=== PATIENT | male | born 1995 | race Caucasian/White ===

== ENCOUNTER 2017-06-11 07:59 | Emergency (ER) | payer OTHER ==
[~2017-06-11] VITALS: Ht 167.6 cm; Wt 97.3 kg
[2017-06-11] MEDS ORDERED: NAPROXEN 250 MG TAB PO ONE (08:45)
--- NOTE | 2017-06-11 09:14 | REP ---
Left ankle series: Four views. History: Pain. Findings: Four views of the left ankle demonstrate an intact ankle mortise. No fracture or subluxation is seen. An accessory navicular ossicle is seen on the lateral radiograph. Impression: No fracture noted. Signed by Alexei Carlos MD 06/11/2017 09:55 A
--- NOTE | 2017-06-11 09:14 | REP ---
Left foot series: Four views. History: Pain. Findings: Four views of the left foot show overall normal mineralization. No fracture or subluxation is seen. Impression: No fracture noted. Signed by Alexei Carlos MD 06/11/2017 09:55 A
[2017-06-11] MEDS ORDERED: MOBI4TAB PO (09:15)
[2017-06-11 09:25] VITALS: BP 142/80
== END 2017-06-11 09:27 | disposition home or self-care (01) ==
LOC: M ED 07:59
DX: S90.02XA Contusion of left ankle, initial encounter (principal); W22.8XXA Striking against or struck by other objects, initial encounter; Y92.129 Unspecified place in nursing home as the place of occurrence of the external cause; Y93.E2 Activity, laundry; Y99.0 Civilian activity done for income or pay; Z79.899 Other long term (current) drug therapy

== ENCOUNTER 2017-09-21 15:04 | Emergency (ER) | payer OTHER, SELFPAY ==
[~2017-09-21] VITALS: Ht 167.6 cm; Wt 106.4 kg
[~2017-09-21 15:04] MED LIST: MOBI4TAB PO
[2017-09-21] MEDS ORDERED: BACT800T5 PO (16:24)
[2017-09-21] MEDS ORDERED: BACTRIM 160MG/800MG DS TAB PO ONE (16:30)
[2017-09-21 16:34] VITALS: BP 140/87
== END 2017-09-21 16:37 | disposition home or self-care (01) ==
LOC: M ED 15:04
DX: N39.0 Urinary tract infection, site not specified (principal)

== ENCOUNTER 2018-04-06 23:07 | Emergency (ER) | payer SELFPAY ==
[2018-04-07 01:44] LABS: APPEARANCE, URINE CLEAR (CLEAR); BACTERIA, URINE AUTO NEGATIVE (NEGATIVE); BILIRUBIN, URINE AUTO NEGATIVE (NEGATIVE); BLOOD, URINE BLOOD NEGATIVE (NEGATIVE); COLOR, URINE YELLOW (YELLOW); GLUCOSE, URINE (UA) AUTO NEGATIVE (NEGATIVE); KETONE, URINE AUTO NEGATIVE (NEGATIVE); LEUKOCYTE ESTERASE, URINE AUTO NEGATIVE (NEGATIVE); MUCUS, URINE SMALL (NEGATIVE); NITRITE, URINE AUTO NEGATIVE (NEGATIVE); PROTEIN, URINE AUTO NEGATIVE (NEGATIVE); RBC, URINE AUTO 3 /HPF (0-3); SQUAMOUS EPITHELIAL CELL UR AU 0 /HPF (0-6); UROBILINOGEN, URINE AUTO 0.2 mg/dL (0.0-2.0); WBC, URINE AUTO 1 /HPF (0-3)
== END 2018-04-07 02:20 | disposition home or self-care (01) ==
LOC: M ED 23:07
DX: N50.3 Cyst of epididymis (principal)
CPT/HCPCS: 76870

== ENCOUNTER 2019-03-31 00:22 | Emergency (ER) | payer SELFPAY ==
[~2019-03-31] VITALS: Ht 167.6 cm; Wt 87.3 kg
[~2019-03-31 00:22] MED LIST changes: +BACT800T5 PO
[2019-03-31 02:19] LABS: CHLAMYDIA DNA AMPLIFICATION NEGATIVE (NEGATIVE); GC DNA AMPLIFICATION NEGATIVE (NEGATIVE)
[2019-03-31] MEDS ORDERED: cefTRIAXone SOD 1 GM VIAL (J0696) IM ONE (04:00)
[2019-03-31] MEDS ORDERED: LIDOCAINE 1% SDV 5 ML VIAL DILUENT ONE (04:00)
[2019-03-31] MEDS ORDERED: DOXY100C37 PO (04:04)
[2019-03-31 05:13] VITALS: BP 125/84
== END 2019-03-31 05:18 | disposition home or self-care (01) ==
LOC: M ED 00:22
DX: N34.1 Nonspecific urethritis (principal)
CPT/HCPCS: 81001; 87086; 87491; 87591; 96372; 99283; J0696

== ENCOUNTER → 2019-08-21 | Outpatient (CLI) | payer OTHER ==
[~2019-08-21] MED LIST changes: +DOXY100C37 PO
--- NOTE | 2019-08-21 13:08 | REP ---
Duplex extremity venous ultrasound: Right lower extremity. History: Right leg pain. Rule out DVT. Findings: The deep veins are anechoic and fully compressible from the groin to the popliteal fossa in the right lower extremity. Color flow imaging is homogeneous. Spectral Doppler interrogation demonstrates intact respiratory variation in flow and normal manual augmentation of flow. There is no evidence of deep vein thrombosis. Impression: Negative right lower extremity duplex venous ultrasound. No evidence of deep vein thrombosis. Electronically Signed by Alexei Carlos MD 08/21/2019 01:00 P
== END ==
LOC: M RAD 12:26
DX: M79.661 Pain in right lower leg (principal)

== ENCOUNTER → 2019-11-26 | Outpatient (REF) | payer SELFPAY ==
[2019-11-26 15:23] LABS: INFLUENZA A AMPLIFICATION NEGATIVE (NEGATIVE); INFLUENZA B AMPLIFICATION POSITIVE (NEGATIVE)
== END ==
LOC: M LAB REF 14:27
PROVIDERS: ATTEND Physician Assistant
DX: J11.1 Influenza due to unidentified influenza virus with other respiratory manifestations (principal)

== ENCOUNTER → 2019-12-10 | Outpatient (REF) | payer SELFPAY ==
[~2019-12-10] MED LIST changes: +MAGICMW SSP; +TESS100C PO
== END ==
LOC: M LAB REF 12:32
PROVIDERS: ATTEND Physician Assistant
DX: J02.9 Acute pharyngitis, unspecified (principal)

== ENCOUNTER 2019-12-13 03:37 | Emergency (ER) | payer SELFPAY ==
[~2019-12-13] VITALS: Ht 167.6 cm; Wt 107.6 kg
[~2019-12-13 03:37] MED LIST changes: -MAGICMW SSP; -TESS100C PO
[2019-12-13] MEDS ORDERED: MAGIC MOUTHWASH SUSPENSION BTL SS STA (06:09)
[2019-12-13] MEDS ORDERED: IBUPROFEN 800 MG TAB PO ONE (06:15)
[2019-12-13 07:14] LABS: MONO REFLEX EBV COMP NEGATIVE (NEGATIVE)
[2019-12-13] MEDS ORDERED: TESS100C PO (07:25)
[2019-12-13] MEDS ORDERED: MAGICMW SSP (07:25)
[2019-12-13 07:29] VITALS: BP 133/73
[2019-12-15 14:16] LABS: EBV AB TO NUCLEAR ANTIGEN 83.4 U/mL (0.0-17.9); EBV VIRAL CAPSID AG IgG 33.9 U/mL (0.0-17.9); EBV VIRAL CAPSID AG IgM <36.0 U/mL (0.0-35.9)
== END 2019-12-13 07:36 | disposition home or self-care (01) ==
LOC: M ED 03:37
DX: J02.9 Acute pharyngitis, unspecified (principal); Z87.09 Personal history of other diseases of the respiratory system

== ENCOUNTER 2020-04-22 09:02 | Emergency (ER) | payer OTHER, SELFPAY ==
[~2020-04-22] VITALS: Ht 167.6 cm; Wt 111.2 kg
[~2020-04-22 09:02] MED LIST changes: +MAGICMW SSP; +TESS100C PO
[2020-04-22] MEDS ORDERED: KETOROLAC TROMETHAMINE 10 MG TAB PO ONE (10:15)
--- NOTE | 2020-04-22 10:41 | REP ---
Clinical: Trauma . Technique: Internal rotation, external rotation, and Y view right shoulder . Findings: No acute fracture or dislocation. The acromioclavicular and glenohumeral joints are intact. No periarticular calcifications or degenerative changes are appreciated. Sub acromial space is normal. Surrounding soft tissues are unremarkable. Impression: Normal right shoulder radiographs. Electronically Signed by Gil Vásquez MD 04/22/2020 10:33 A
[2020-04-22] MEDS ORDERED: IBUP80TA PO (10:51)
[2020-04-22 10:55] VITALS: BP 134/82
== END 2020-04-22 10:58 | disposition home or self-care (01) ==
LOC: M ED 09:02
DX: S40.011A Contusion of right shoulder, initial encounter (principal); W22.8XXA Striking against or struck by other objects, initial encounter; Y92.89 Other specified places as the place of occurrence of the external cause; Y93.9 Activity, unspecified; Y99.0 Civilian activity done for income or pay

== ENCOUNTER 2020-04-27 15:31 | Emergency (ER) | payer OTHER, SELFPAY ==
[~2020-04-27] VITALS: Ht 167.6 cm; Wt 110.8 kg
[~2020-04-27 15:31] MED LIST changes: +IBUP80TA PO
--- NOTE | 2020-04-27 17:52 | REPVR ---
PROCEDURE INFORMATION: Exam: US Scrotum Exam date and time: 04/27/2020 5:32 PM Age: 25 years old Clinical indication: Scrotum pain; Patient HX: Rash/pain scrotum; Additional info: Redness, tender scrotum TECHNIQUE: Imaging protocol: Real-time ultrasound of the scrotum and contents with color Doppler and image documentation. COMPARISON: Scrotal, US 04/07/2018 1:00 AM FINDINGS: Right testicle measures 4.7 x 2.8 x 3.2 cm in size. Right testicle appears homogeneous with no focal mass. Normal Doppler flow is present within the right testicle. Left testicle measures 4.9 x 2.3 x 3.5 cm in size. Left testicle appears homogeneous with no focal mass. Normal Doppler flow is present within the left testicle. Right and left epididymis are symmetric and have normal Doppler flow. Incidental right epididymal head cyst 6 mm. Physiologic fluid volume within the scrotal sac. Minor left varicocele No bowel-containing hernia sac within the scrotum. IMPRESSION: No evidence of scrotal infection or abscess. Incidental 6 mm right epididymal head cyst and minor left varicocele. Electronically signed by: Arash Mandel On 04/27/2020 17:51:21 PM
[2020-04-27 18:36] VITALS: BP 131/82
[2020-04-27 18:46] LABS: CHLAMYDIA DNA AMPLIFICATION NEGATIVE (NEGATIVE); GC DNA AMPLIFICATION NEGATIVE (NEGATIVE)
--- NOTE | 2020-04-28 15:09 | ED PDOC ---
Post-Departure Follow-Up dr dhillon faxed formal report of scrotal us for fu Genesis Cabral MD Apr 28, 2020 15:09
[2020-05-01 19:06] LABS: HSV-1 DNA Negative (Negative); HSV-2 DNA Negative (Negative)
== END 2020-04-27 18:37 | disposition home or self-care (01) ==
LOC: M ED 15:31
DX: L29.8 Other pruritus (principal); N49.2 Inflammatory disorders of scrotum; N50.3 Cyst of epididymis

== ENCOUNTER 2022-10-28 03:45 | Emergency (ER) | payer SELFPAY ==
[~2022-10-28] VITALS: Ht 167.6 cm; Wt 134.3 kg
[~2022-10-28 03:45] MED LIST changes: +DOXY-443 PO; -DOXY100C37 PO
[2022-10-28 03:46] VITALS: BP 143/105
[2022-10-28] MEDS ORDERED: AMOX875T PO (03:57)
== END 2022-10-28 06:49 | disposition left against medical advice (07) ==
LOC: M ED 03:45
DX: Z53.21 Procedure and treatment not carried out due to patient leaving prior to being seen by health care provider (principal)

== ENCOUNTER 2023-01-15 20:43 | Emergency (ER) | payer SELFPAY ==
[~2023-01-15] VITALS: Ht 170.2 cm; Wt 129.6 kg
[~2023-01-15 20:43] MED LIST changes: +AMOX875T PO
[2023-01-15 20:44] VITALS: BP 160/78
[2023-01-15 21:30] LABS: BASO # 0.1 10^3/uL (0.0-0.2); BASO % 0.8 % (0.0-1.0); EOS # 0.3 10^3/uL (0.0-0.5); EOS % 4.6 % (0.0-3.0); HEMATOCRIT 49.5 % (42.0-52.0); HEMOGLOBIN 16.1 g/dl (13.5-17.5); LYMPH # 1.7 10^3/uL (1.5-5.0); LYMPH % 22.8 % (24.0-44.0); MEAN CORPUSCULAR HEMOGLOBIN 29.3 pg (27.0-33.0); MEAN CORPUSCULAR HGB CONC 32.5 g/dl (32.0-36.5); MEAN CORPUSCULAR VOLUME 90.2 fl (80.0-96.0); MONO # 0.4 10^3/uL (0.0-0.8); NEUTROPHILS # 4.8 10^3/uL (1.5-8.5); NEUTROPHILS % 65.5 % (36.0-66.0); PLATELET COUNT, AUTOMATED 262 10^3/uL (150-450); RED BLOOD COUNT 5.49 10^6/uL (4.30-6.10); WHITE BLOOD COUNT 7.4 10^3/uL (4.0-10.0)
[2023-01-15 22:04] LABS: CK-MB VALUE MASS < 1.0 NG/ML (<3.6)
[2023-01-15 22:06] LABS: BLOOD UREA NITROGEN 12 MG/DL (9-23); CALCIUM LEVEL 9.2 MG/DL (8.5-10.1); CARBON DIOXIDE LEVEL 30 MMOL/L (20-31); CHLORIDE LEVEL 105 MMOL/L (98-107); CREATININE FOR GFR 0.84 MG/DL (0.70-1.30); GLOMERULAR FILTRATION RATE > 60.0 (>60); GLUCOSE, FASTING 101 MG/DL (60-100); POTASSIUM SERUM 5.1 MMOL/L (3.5-5.1); SODIUM LEVEL 139 MMOL/L (136-145)
[2023-01-15 22:07] LABS: CPK CREATINE PHOSPHOKINASE 106 U/L (46-171); MB/CK RELATIVE INDEX 0.94 (< OR =4)
[2023-01-16 01:00] LABS: CK-MB VALUE MASS < 1.0 NG/ML (<3.6); CPK CREATINE PHOSPHOKINASE 174 U/L (46-171); MB/CK RELATIVE INDEX 0.57 (< OR =4)
[2023-01-16] MEDS ORDERED: IBUP80TA PO (01:56)
== END 2023-01-16 02:31 | disposition home or self-care (01) ==
LOC: M ED 20:43
DX: R07.89 Other chest pain (principal)

== ENCOUNTER 2024-07-28 12:23 | Emergency (ER) | payer SELFPAY ==
[~2024-07-28] VITALS: Ht 170.2 cm; Wt 138.9 kg
[~2024-07-28 12:23] MED LIST changes: +DOXY-441 PO; -DOXY-443 PO
[2024-07-28 13:03] LABS: BASO # 0.1 10^3/uL (0.0-0.2); BASO % 0.6 % (0.0-1.0); EOS # 0.4 10^3/uL (0.0-0.5); EOS % 4.2 % (0.0-3.0); HEMATOCRIT 47.8 % (42.0-52.0); HEMOGLOBIN 15.7 g/dl (13.5-17.5); LYMPH # 1.9 10^3/uL (1.5-5.0); LYMPH % 21.6 % (24.0-44.0); MEAN CORPUSCULAR HGB CONC 32.8 g/dl (32.0-36.5); MEAN CORPUSCULAR VOLUME 88.2 fl (80.0-96.0); MONO # 0.6 10^3/uL (0.0-0.8); MONO % 7.3 % (2.0-8.0); NEUTROPHILS # 5.7 10^3/uL (1.5-8.5); NEUTROPHILS % 65.4 % (36.0-66.0); PLATELET COUNT, AUTOMATED 283 10^3/uL (150-450); RED BLOOD COUNT 5.42 10^6/uL (4.30-6.10); WHITE BLOOD COUNT 8.7 10^3/uL (4.0-10.0)
[2024-07-28 13:35] LABS: BLOOD UREA NITROGEN 12 MG/DL (9-23); CALCIUM LEVEL 9.2 MG/DL (8.5-10.1); CARBON DIOXIDE LEVEL 29 MMOL/L (20-31); CHLORIDE LEVEL 103 MMOL/L (98-107); CK-MB VALUE MASS < 1.0 NG/ML (<3.6); CPK CREATINE PHOSPHOKINASE 171 U/L (46-171); CREATININE FOR GFR 0.86 MG/DL (0.70-1.30); GLOMERULAR FILTRATION RATE > 60.0 (>60); GLUCOSE, FASTING 94 MG/DL (60-100); MB/CK RELATIVE INDEX 0.58 (< OR =4); POTASSIUM SERUM 3.9 MMOL/L (3.5-5.1); SODIUM LEVEL 135 MMOL/L (136-145)
[2024-07-28 14:34] LABS: MB/CK RELATIVE INDEX 0.56 (< OR =4)
[2024-07-28 15:02] VITALS: BP 142/90; TEMP 98.4; O2SAT 99
== END 2024-07-28 15:04 | disposition home or self-care (01) ==
LOC: M ED 12:23
DX: R07.89 Other chest pain (principal); J45.909 Unspecified asthma, uncomplicated

== ENCOUNTER 2024-08-03 07:41 | Emergency (ER) | payer SELFPAY ==
[~2024-08-03] VITALS: Ht 170.2 cm; Wt 140.4 kg
[2024-08-03] MEDS ORDERED: IBUP-1114 PO (07:48)
[2024-08-03] MEDS ORDERED: IBUP200C25 PO (08:25)
[2024-08-03] MEDS ORDERED: HOME MED LIST COMPLETE! XX SCH (08:30)
[2024-08-03 10:02] VITALS: BP 165/90; TEMP 98.3; O2SAT 98
== END 2024-08-03 10:21 | disposition home or self-care (01) ==
LOC: M ED 07:41
DX: F32.A Depression, unspecified (principal)

== ENCOUNTER 2025-05-24 08:13 | Emergency (ER) | payer SELFPAY ==
[~2025-05-24] VITALS: Ht 170.2 cm; Wt 140.0 kg
[~2025-05-24 08:13] MED LIST changes: +IBUP-1114 PO; +IBUP200C25 PO
[2025-05-24 08:28] VITALS: TEMP 98.6
[2025-05-24] MEDS: IPRATROPIUM 0.5 MG/ALBUTEROL 2.5 MG INH SOL UD 3 ML NEB ONE (10:51)
[2025-05-24 11:02] VITALS: BP 137/60; O2SAT 95
[2025-05-24] MEDS ORDERED: PRED10TA2 PO (11:32)
[2025-05-24] MEDS ORDERED: BENZ200C70 PO (11:32)
== END 2025-05-24 11:25 | disposition home or self-care (01) ==
LOC: M ED 08:13
DX: J20.9 Acute bronchitis, unspecified (principal)